=== PATIENT | female | born 1945 | race Caucasian/White ===

== ENCOUNTER 2017-06-28 14:56 | Observation (INO) | payer MEDICARE, OTHER ==
[~2017-06-28] VITALS: Ht 167.6 cm; Wt 84.1 kg
[2017-06-28 15:26] LABS: BASOPHILS # (AUTO) 0.1 X10'3 (0-0.2); BASOPHILS % (AUTO) 0.6 % (0-1); EOSINOPHILS # (AUTO) 0.2 X10'3 (0-0.9); EOSINOPHILS % (AUTO) 1.8 % (0-6); HEMATOCRIT 41.4 % (35.0-45.0); HEMOGLOBIN 14.1 g/dl (12.0-16.0); LYMPHOCYTES # (AUTO) 1.5 X10'3 (1.1-4.8); LYMPHOCYTES % (AUTO) 15.5 % (21-51); MEAN CORPUSCULAR HEMOGLOBIN 30.6 PG (27.0-31.0); MEAN PLATELET VOLUME 9.4 FL (7.4-10.4); MONOCYTES # (AUTO) 0.7 X10'3 (0-0.9); NEUTROPHILS # (AUTO) 7.5 X10'3 (1.8-7.7); NEUTROPHILS % (AUTO) 75.1 % (42-75); PLATELET COUNT 215 X10'3 (140-440); RED CELL DISTRIBUTION WIDTH 13.6 % (11.5-14.5)
[2017-06-28 15:37] LABS: PARTIAL THROMBOPLASTIN TIME 25 SECONDS (22-32)
[2017-06-28] MEDS ORDERED: nitroGLYCERIN 0.2mg/hour patch TD ONE (15:50)
[2017-06-28 15:53] LABS: ALBUMIN 3.9 G/DL (3.4-5.0); ANION GAP 12 (8-16); BILIRUBIN,TOTAL 0.6 MG/DL (0.1-1.0); BLOOD UREA NITROGEN 23 MG/DL (7-18); BUN/CREATININE RATIO 20.7 (6.6-38.0); CALCIUM 9.2 MG/DL (8.5-10.1); CHLORIDE 102 MMOL/L (99-107); CREATININE 1.11 MG/DL (0.40-0.90); GLUCOSE 97 MG/DL (70-104); MAGNESIUM 2.2 MG/DL (1.5-2.4); POTASSIUM 4.3 MMOL/L (3.5-5.1); SODIUM 142 MMOL/L (135-145); TOTAL CARBON DIOXIDE 28.1 MMOL/L (24-32); TOTAL PROTEIN 7.8 G/DL (6.4-8.2); eGFR 48 ML/MIN
[2017-06-28 15:54] LABS: ALANINE AMINOTRANSFERASE 33 U/L (12-78); ALKALINE PHOSPHATASE 74 IU/L (46-116); ASPARTATE AMINO TRANSFERASE 22 U/L (10-37)
[2017-06-28] MEDS ORDERED: CYAN100097 PO (16:31)
[2017-06-28] MEDS ORDERED: MAGN400C PO (16:31)
[2017-06-28] MEDS ORDERED: VITA0.4T2 PO (16:31)
[2017-06-28] MEDS ORDERED: CHOL10002 PO (16:31)
[2017-06-28] MEDS ORDERED: HYDR25TA4 PO (16:31)
[2017-06-28] MEDS ORDERED: HYDR-4069 PO (16:31)
[2017-06-28] MEDS ORDERED: potassium Cl 20 mEq SR tablet PO PRN ×2 (16:50)
[2017-06-28] MEDS ORDERED: mag hydrox/Alum hydrox/simeth 30ml oral suspension PO PRN (16:50)
[2017-06-28] MEDS ORDERED: ondansetron/PF 4mg/2ml inj IV PRN (16:50)
[2017-06-28] MEDS ORDERED: magnesium 4gm in 100ml NS 100 ML IV PRN (16:50)
[2017-06-28] MEDS ORDERED: magnesium 2GM in 50ml NS 50 ML IV PRN (16:50)
[2017-06-28] MEDS ORDERED: potassium Cl 40MEQ/NS 500ml 500 ML IV PRN ×2 (16:50)
[2017-06-28] MEDS ORDERED: magnesium hydroxide 30ml (MOM) UD suspension PO PRN (16:50)
[2017-06-28] MEDS ORDERED: acetaminophen 325mg tablet PO PRN (16:50)
[2017-06-28] MEDS ORDERED: magnesium Cl slow-release 64mg tablet PO PRN (16:50)
[2017-06-28] MEDS: hydrALAZINE 25 MG tablet PO SCH (17:50)
[2017-06-28] MEDS: normal saline 1000ml 1,000 ML IV SCH (17:50)
[2017-06-28] MEDS ORDERED: hydrALAZINE 25 MG tablet PO SCH (20:00)
[2017-06-29 00:40] VITALS: BP 162/56
[2017-06-29] MEDS: hydrALAZINE 25 MG tablet PO SCH ×2 (00:43→07:33)
[2017-06-29] MEDS: normal saline 1000ml 1,000 ML IV SCH (00:43)
[2017-06-29] MEDS: heparin, porcine 5000 units/ml vial SQ SCH ×2 (00:44→07:36)
[2017-06-29 00:50] VITALS: BP_SYST 142; BP_SYST 162; BP_SYST 174; BP_DIAS 56; BP_DIAS 76; BP_DIAS 77
[2017-06-29 02:00] VITALS: BP 118/45
[2017-06-29 03:49] LABS: BASOPHILS % (AUTO) 0.5 % (0-1); EOSINOPHILS # (AUTO) 0.2 X10'3 (0-0.9); EOSINOPHILS % (AUTO) 2.6 % (0-6); HEMATOCRIT 35.3 % (35.0-45.0); HEMOGLOBIN 12.1 g/dl (12.0-16.0); LYMPHOCYTES # (AUTO) 2.1 X10'3 (1.1-4.8); LYMPHOCYTES % (AUTO) 31.1 % (21-51); MEAN CORPUSCULAR HEMOGLOBIN 30.6 PG (27.0-31.0); MEAN CORPUSCULAR HGB CONC 34.1 % (33.0-36.5); MEAN CORPUSCULAR VOLUME 89.5 FL (78-98); MEAN PLATELET VOLUME 9.3 FL (7.4-10.4); MONOCYTES # (AUTO) 0.7 X10'3 (0-0.9); MONOCYTES % (AUTO) 10.4 % (2-12); NEUTROPHILS # (AUTO) 3.8 X10'3 (1.8-7.7); NEUTROPHILS % (AUTO) 55.4 % (42-75); PLATELET COUNT 195 X10'3 (140-440); RED BLOOD COUNT 3.95 X10'6 (4.20-5.60); RED CELL DISTRIBUTION WIDTH 13.3 % (11.5-14.5); WHITE BLOOD COUNT 6.8 X10'3 (4.5-11.0)
[2017-06-29 04:08] LABS: ALBUMIN 3.1 G/DL (3.4-5.0); ANION GAP 10 (8-16); BLOOD UREA NITROGEN 22 MG/DL (7-18); BUN/CREATININE RATIO 19.3 (6.6-38.0); CALCIUM 8.7 MG/DL (8.5-10.1); CHLORIDE 105 MMOL/L (99-107); CREATININE 1.14 MG/DL (0.40-0.90); GLUCOSE 103 MG/DL (70-104); MAGNESIUM 2.1 MG/DL (1.5-2.4); POTASSIUM 3.6 MMOL/L (3.5-5.1); SODIUM 141 MMOL/L (135-145); TOTAL CARBON DIOXIDE 25.8 MMOL/L (24-32); eGFR 47 ML/MIN
[2017-06-29 06:00] VITALS: BP 143/56
[2017-06-29] MEDS ORDERED: vitamin B comp w/Vit. C tab 1 TAB TABLET PO SCH (08:00)
[2017-06-29] MEDS ORDERED: vitamin D (cholecalciferol) 1,000 unit tablet PO SCH (08:00)
[2017-06-29] MEDS ORDERED: magnesium oxide 400mg tablet PO SCH (08:00)
[2017-06-29] MEDS ORDERED: cyanocobalamin 500mcg tablet PO SCH (08:00)
[2017-06-29] MEDS ORDERED: K and/or MAG REPLACEMENT MC SCH (08:00)
[2017-06-29] MEDS ORDERED: potassium Cl 20 mEq SR tablet PO STA (08:05)
[2017-06-29 11:00] VITALS: BP 139/61
== END 2017-06-29 13:15 | disposition left against medical advice (07) ==
LOC: ER 14:56 → ED HOLD 16:46 → EDBEDREQSVC 22:53 → ORTHO 4S 06-29 00:45
PROVIDERS: ADMIT Internal Medicine; ATTEND Internal Medicine
DX: R42 Dizziness and giddiness (principal); R05 Cough; R11.0 Nausea; E78.5 Hyperlipidemia, unspecified; G47.33 Obstructive sleep apnea (adult) (pediatric); I10 Essential (primary) hypertension; I16.0 Hypertensive urgency; J06.9 Acute upper respiratory infection, unspecified; I25.110 Atherosclerotic heart disease of native coronary artery with unstable angina pectoris; I25.2 Old myocardial infarction; Z95.1 Presence of aortocoronary bypass graft; Z95.5 Presence of coronary angioplasty implant and graft; Z96.652 Presence of left artificial knee joint; Z82.49 Family history of ischemic heart disease and other diseases of the circulatory system
CPT/HCPCS: 36415; 71045; 80048; 80053; 83605; 83735; 83880; 84439; 84443; 84484; 85025; 85610; 85730; 87040; 87070; 87502; 87503; 93005; 93306; 94667; 94668; 96360; 96361; 96372; 99285; G0378; J1644; J7030; J3420

== ENCOUNTER 2018-06-04 05:22 | Inpatient (IN) | payer MEDICARE, OTHER ==
[~2018-06-04] VITALS: Ht 167.6 cm; Wt 84.1 kg
[~2018-06-04 05:22] MED LIST: ASPI-1265 PO; CHOL10002 PO; CYAN100097 PO; HYDR-4069 PO; HYDR25TA4 PO; MAGN400C PO; TICA90TA PO; VITA0.4T2 PO; VITA100D6 PO; [UNRECOGNIZED DRUG - OTHER] PO
[2018-06-04 05:52] LABS: BASOPHILS % (AUTO) 0.4 % (0-1); EOSINOPHILS # (AUTO) 0.1 X10'3 (0-0.9); EOSINOPHILS % (AUTO) 1.3 % (0-6); HEMATOCRIT 41.6 % (35.0-45.0); HEMOGLOBIN 13.9 g/dl (12.0-16.0); LYMPHOCYTES # (AUTO) 1.7 X10'3 (1.1-4.8); LYMPHOCYTES % (AUTO) 21.5 % (21-51); MEAN CORPUSCULAR HEMOGLOBIN 29.7 PG (27.0-31.0); MEAN CORPUSCULAR HGB CONC 33.4 g/dL (33.0-36.5); MEAN CORPUSCULAR VOLUME 88.8 FL (78-98); MEAN PLATELET VOLUME 9.7 FL (7.4-10.4); MONOCYTES # (AUTO) 0.7 X10'3 (0-0.9); MONOCYTES % (AUTO) 9.5 % (2-12); NEUTROPHILS # (AUTO) 5.3 X10'3 (1.8-7.7); NEUTROPHILS % (AUTO) 67.3 % (42-75); PLATELET COUNT 205 X10'3 (140-440); RED BLOOD COUNT 4.69 X10'6 (4.20-5.60); RED CELL DISTRIBUTION WIDTH 13.7 % (11.5-14.5); WHITE BLOOD COUNT 7.9 X10'3 (4.5-11.0)
--- NOTE | 2018-06-04 06:06 | NUR ---
SPOUSE IN ROOM, THEY ARE QUIET
[2018-06-04 06:11] LABS: ALANINE AMINOTRANSFERASE 26 U/L (12-78); ALBUMIN 3.8 G/DL (3.4-5.0); ALKALINE PHOSPHATASE 76 IU/L (46-116); ANION GAP 12 (8-16); ASPARTATE AMINO TRANSFERASE 17 U/L (10-37); BILIRUBIN,TOTAL 0.6 MG/DL (0.1-1.0); BLOOD UREA NITROGEN 20 MG/DL (7-18); BUN/CREATININE RATIO 16.9 (6.6-38.0); CALCIUM 8.9 MG/DL (8.5-10.1); CHLORIDE 101 MMOL/L (99-107); CREATININE 1.18 MG/DL (0.40-0.90); GLUCOSE 111 MG/DL (70-104); POTASSIUM 3.6 MMOL/L (3.5-5.1); SODIUM 139 MMOL/L (135-145); TOTAL PROTEIN 7.5 G/DL (6.4-8.2); eGFR 45 ML/MIN
[2018-06-04 06:12] LABS: PARTIAL THROMBOPLASTIN TIME 26 SECONDS (22-32)
[2018-06-04] MEDS ORDERED: normal saline 1000ML IV soln IVB ONE (06:30)
[2018-06-04] MEDS ORDERED: HYDROchlorothiazide 25mg tablet PO ONE (06:30)
[2018-06-04] MEDS ORDERED: hydrALAZINE 25 MG tablet PO SCH (06:30)
[2018-06-04 07:06] LABS: CLARITY,URINE CLEAR (Clear); COLOR,URINE STRAW (Yellow); GLUCOSE, URINE NEGATIVE (Neg); KETONES,URINE NEGATIVE (Neg); LEUKOCYTE ESTERASE ,URINE SMALL (Neg); NITRITES, URINE NEGATIVE (Neg); OCCULT BLOOD,URINE NEGATIVE (Neg); PH,URINE 6.5 (4.8-8.0); PROTEIN,URINE NEGATIVE (Neg); UROBILINOGEN,URINE 0.2 E.U/dL (0.2-1.0)
[2018-06-04 07:10] LABS: UA COLLECTION TYPE CLN CATCH MIDSTREAM
[2018-06-04 07:13] LABS: BACTERIA,URINE FEW /HPF (Neg); MUCUS STRANDS NONE SEEN /LPF (Neg); RBC,URINE NONE SEEN /HPF (0-2); SQUAMOUS EPITHELIAL CELL,UR FEW /LPF (FEW); WBC,URINE 0-4 /HPF (0-4)
[2018-06-04] MEDS ORDERED: furosemide 10 MG/1 ML 10ml inj IV ONE (07:20)
[2018-06-04] MEDS ORDERED: nitroGLYCERIN 0.4mg/hour patch TD ONE (07:35)
[2018-06-04] MEDS ORDERED: ondansetron/PF 4mg/2ml inj IV PRN (08:10)
[2018-06-04] MEDS ORDERED: magnesium hydroxide 30ml (MOM) UD suspension PO PRN (08:10)
[2018-06-04] MEDS ORDERED: mag hydrox/Alum hydrox/simeth 30ml oral suspension PO PRN (08:10)
[2018-06-04] MEDS: furosemide 10 MG/1 ML 10ml inj IV SCH ×2 (08:12→21:25)
--- NOTE | 2018-06-04 11:15 | NUR ---
RECEIVED REPORT FROM BUZZ ADEN IN ER. PATIENT WILL BE COMING TO THE SURGICAL FLOOR 346B.
--- NOTE | 2018-06-04 12:00 | NUR ---
PATIENT ARRIVED TO THE SURGICAL UNIT BED 346 B ALERT AND ORIENTED. PATIENT STABLE IN BED. I WILL CONTINUE TO MONITOR.
[2018-06-04 12:10] VITALS: BP 133/69
[2018-06-04] MEDS ORDERED: CLOP75TA15 PO (12:15)
--- NOTE | 2018-06-04 18:34 | NUR ---
Problems reprioritized. Patient report given, DAVID ADEN questions answered & plan of care reviewed with . PATIENT IN BED WATCHING TV, BED LOW LOCKED, CALL LIGHT IN REACH
[2018-06-04 19:50] VITALS: BP 168/68
[2018-06-04] MEDS: hydrALAZINE 25 MG tablet PO SCH (21:25)
[2018-06-05] VITALS: BP 130/53
--- NOTE | 2018-06-05 06:00 | NUR ---
Patient in room [facility]. I have received report from MARKIE Miller and had the opportunity to ask questions and assume patient care.
--- NOTE | 2018-06-05 06:31 | NUR ---
Problems reprioritized. Patient report given, questions answered & plan of care reviewed with ALONZO. Addendum: 06/05/18 at 0631 by Pasquale Kidd RN Amended: Links added.
--- NOTE | 2018-06-05 06:38 | NUR ---
Problems reprioritized. Patient report given, questions answered & plan of care reviewed with AB ROSADO. Addendum: 06/05/18 at 0639 by Pasquale Kidd RN Amended: Links added.
[2018-06-05 07:12] LABS: ALBUMIN 3.6 G/DL (3.4-5.0); ANION GAP 13 (8-16); BLOOD UREA NITROGEN 27 MG/DL (7-18); BUN/CREATININE RATIO 20.6 (6.6-38.0); CHLORIDE 98 MMOL/L (99-107); CREATININE 1.31 MG/DL (0.40-0.90); GLUCOSE 114 MG/DL (70-104); SODIUM 134 MMOL/L (135-145); TOTAL CARBON DIOXIDE 23.3 MMOL/L (24-32); eGFR 40 ML/MIN
[2018-06-05 07:13] LABS: POTASSIUM 3.5 MMOL/L (3.5-5.1)
[2018-06-05] MEDS ORDERED: clopidogrel 75mg tablet PO SCH (08:00)
[2018-06-05] MEDS ORDERED: vitamin D (cholecalciferol) 1,000 unit tablet PO SCH (08:00)
[2018-06-05] MEDS ORDERED: enoxaparin 40mg/0.4ml syringe SUBCUT SCH (08:00)
[2018-06-05] MEDS ORDERED: vitamin B comp w/Vit. C tab 1 TAB TABLET PO SCH (08:00)
[2018-06-05] MEDS ORDERED: cyanocobalamin 500mcg tablet PO SCH (08:00)
[2018-06-05] MEDS ORDERED: magnesium oxide 400mg tablet PO SCH (08:00)
[2018-06-05] MEDS ORDERED: vitamin E 400 unit capsule PO SCH (08:00)
[2018-06-05] MEDS ORDERED: FURO-150 PO (08:54)
[2018-06-05] MEDS ORDERED: ONDA4TAB6 PO (08:55)
[2018-06-05] MEDS: hydrALAZINE 25 MG tablet PO SCH (10:33)
[2018-06-05] MEDS: furosemide 10 MG/1 ML 10ml inj IV SCH (10:36)
[2018-06-05 11:06] VITALS: BP 127/67
--- NOTE | 2018-06-05 13:40 | NUR ---
DC inst provided to pt. IV DC'd, tip intact. All belongings sent w/pt. Pt ambulated w/auxiliary staff to front lobby.
== END 2018-06-05 13:45 | disposition home or self-care (01) | DRG 292 ==
LOC: ER 05:23 → ED HOLD 08:06 → SUR 3N 12:00
PROVIDERS: ADMIT Internal Medicine; ATTEND Internal Medicine
DX: I11.0 Hypertensive heart disease with heart failure (principal); I24.9 Acute ischemic heart disease, unspecified; I50.33 Acute on chronic diastolic (congestive) heart failure; G47.30 Sleep apnea, unspecified; I25.10 Atherosclerotic heart disease of native coronary artery without angina pectoris; G62.9 Polyneuropathy, unspecified; Z96.659 Presence of unspecified artificial knee joint; I25.2 Old myocardial infarction; Z95.1 Presence of aortocoronary bypass graft; Z88.5 Allergy status to narcotic agent; Z88.8 Allergy status to other drugs, medicaments and biological substances; Z79.899 Other long term (current) drug therapy; Z79.02 Long term (current) use of antithrombotics/antiplatelets
CPT/HCPCS: 36415; 71045; 80048; 80053; 81001; 82948; 83880; 84484; 85025; 85610; 85730; 87070; 87088; 93005; 93306; 96361; 96374; 99285; G0378; J1650; J1940; J2405; J3420

== ENCOUNTER 2020-03-26 06:57 | Day surgery (SDC) | payer MEDICARE, OTHER ==
[2020-03-26] VITALS (12 sets, daily range): BP systolic 112–145; BP diastolic 40–76
[~2020-03-26] VITALS: Ht 167.6 cm; Wt 82.1 kg
[~2020-03-26 06:57] MED LIST changes: +APIX5TAB3 PO; -ASPI-1265 PO; +ATOR20TA66 PO; +CLOP75TA15 PO; +COR3.125T PO; +FURO-150 PO; +LISI2.5T2 PO; +POTA20TA10 PO; -TICA90TA PO; -[UNRECOGNIZED DRUG - OTHER] PO
[2020-03-26] MEDS ORDERED: amiodarone 150mg/dext, iso-os 100 ML IV ONE (07:25)
[2020-03-26] MEDS ORDERED: fentaNYL/PF 50MCG/1 ML 2ML syringe IV ONE (07:25)
[2020-03-26] MEDS ORDERED: diphenhydrAMINE 25mg capsule PO ONE (07:25)
[2020-03-26] MEDS ORDERED: normal saline 1000ml 1,000 ML IV SCH (07:25)
[2020-03-26] MEDS ORDERED: LORazepam 0.5 MG tablet PO ONE (07:25)
[2020-03-26] MEDS ORDERED: MIDAZolam 1mg/ml 10ml vial IV ONE (07:25)
[2020-03-26] MEDS ORDERED: atropine 0.1mg/ml 10ml syringe IV ONE (07:25)
[2020-03-26] MEDS ORDERED: WARF3TAB56 PO (07:31)
[2020-03-26] MEDS ORDERED: AMIO200T61 PO (07:31)
[2020-03-26] MEDS ORDERED: DIGO125T PO (07:31)
[2020-03-26] MEDS ORDERED: ALLO100T PO (07:31)
[2020-03-26] MEDS ORDERED: METO-395 PO (07:31)
[2020-03-26] MEDS ORDERED: FURO40TA4 PO (07:31)
== END 2020-03-26 13:30 | disposition home or self-care (01) ==
LOC: SSTAY O 06:57
PROVIDERS: ATTEND Internal Medicine Cardiovascular Disease
DX: I48.19 Other persistent atrial fibrillation (principal); I25.10 Atherosclerotic heart disease of native coronary artery without angina pectoris; I11.0 Hypertensive heart disease with heart failure; I50.42 Chronic combined systolic (congestive) and diastolic (congestive) heart failure; E78.5 Hyperlipidemia, unspecified; Z95.5 Presence of coronary angioplasty implant and graft; Z79.01 Long term (current) use of anticoagulants; Z79.899 Other long term (current) drug therapy
CPT/HCPCS: 36415; 85610; 92960; 93005; 94760; 94799; J0461; J2250; J3010; J7030

== ENCOUNTER 2020-12-03 10:03 | Outpatient (CLI) | payer MEDICARE, OTHER ==
[~2020-12-03 10:03] MED LIST changes: +ALLO100T PO; +AMIO200T61 PO; -APIX5TAB3 PO; -ATOR20TA66 PO; -CLOP75TA15 PO; -COR3.125T PO; -CYAN100097 PO; +DIGO125T PO; -FURO-150 PO; +FURO40TA4 PO; -HYDR25TA4 PO; -LISI2.5T2 PO; +METO-395 PO; -POTA20TA10 PO; -VITA0.4T2 PO; +WARF3TAB56 PO
[2020-12-03 10:40] LABS: TOTAL HEMOGLOBIN 12.5 G/dl (12.0-16.0)
== END 2020-12-03 23:59 | disposition home or self-care (01) ==
LOC: RT 10:03
PROVIDERS: ATTEND Internal Medicine Cardiovascular Disease
DX: R06.02 Shortness of breath (principal); I51.7 Cardiomegaly; Z79.899 Other long term (current) drug therapy
CPT/HCPCS: 71046; 85018; 94010; 94727; 94729

== ENCOUNTER 2021-12-28 05:57 | Day surgery (SDC) | payer MEDICARE, OTHER ==
[2021-12-25 12:12] LABS: BASOPHILS % (AUTO) 0.8 % (0-1); EOSINOPHILS # (AUTO) 0.1 X10'3 (0-0.9); EOSINOPHILS % (AUTO) 1.3 % (0-6); HEMATOCRIT 33.1 % (35.0-45.0); HEMOGLOBIN 10.5 g/dl (12.0-16.0); LYMPHOCYTES % (AUTO) 18.2 % (21-51); MEAN CORPUSCULAR HEMOGLOBIN 26.5 PG (27.0-31.0); MEAN CORPUSCULAR HGB CONC 31.8 g/dL (33.0-36.5); MEAN CORPUSCULAR VOLUME 83.1 FL (78-98); MEAN PLATELET VOLUME 10.3 FL (7.4-10.4); MONOCYTES # (AUTO) 0.8 X10'3 (0-0.9); MONOCYTES % (AUTO) 14.9 % (2-12); NEUTROPHILS # (AUTO) 3.4 X10'3 (1.8-7.7); NEUTROPHILS % (AUTO) 64.8 % (42-75); PLATELET COUNT 159 X10'3 (140-440); RED BLOOD COUNT 3.98 X10'6 (4.20-5.60); RED CELL DISTRIBUTION WIDTH 17.8 % (11.5-14.5); WHITE BLOOD COUNT 5.2 X10'3 (4.5-11.0)
[2021-12-25 12:31] LABS: ALBUMIN 3.6 G/DL (3.4-5.0); ANION GAP 7 (8-16); BLOOD UREA NITROGEN 25 MG/DL (7-18); BUN/CREATININE RATIO 16.2 (6.6-38.0); CALCIUM 8.8 MG/DL (8.5-10.1); CHLORIDE 105 MMOL/L (99-107); CREATININE 1.54 MG/DL (0.40-0.90); GLUCOSE 92 MG/DL (70-104); POTASSIUM 4.5 MMOL/L (3.5-5.1); SODIUM 138 MMOL/L (135-145); TOTAL CARBON DIOXIDE 26.4 MMOL/L (24-32); eGFR 33 ML/MIN
[2021-12-25 12:51] LABS: APTT 37 SECONDS (22-32)
[~2021-12-28] VITALS: Ht 167.6 cm; Wt 90.9 kg
[2021-12-28] VITALS (12 sets, daily range): BP systolic 130–165; BP diastolic 45–86
[2021-12-28] MEDS ORDERED: LIDOcaine/PRILOcaine 5gm cream TP ONE (06:20)
[2021-12-28] MEDS ORDERED: normal saline 1,000 ML IV SCH ×2 (06:20→07:40)
[2021-12-28] MEDS ORDERED: diphenhydrAMINE 25mg capsule PO PRN (06:20)
[2021-12-28] MEDS ORDERED: acetylcysteine 200 MG/ml 4ml vial PO SCH (06:20)
[2021-12-28] MEDS ORDERED: LORazepam 0.5 MG tablet PO PRN (06:20)
[2021-12-28] MEDS ORDERED: METO-539 PO ×2 (06:38→06:40)
[2021-12-28] MEDS ORDERED: WARF-55 PO (06:40)
[2021-12-28 07:27] LABS: APTT 31 SECONDS (22-32)
[2021-12-28] MEDS ORDERED: nitroGLYCERIN-Tridil 50MG/D5W 250 ML IV ONE (07:36)
[2021-12-28] MEDS ORDERED: verapamil 2.5 mg/ml inj IV ONE (07:36)
[2021-12-28] MEDS ORDERED: fentaNYL/PF 50MCG/1 ML 2ML syringe ONE (07:36)
[2021-12-28] MEDS ORDERED: LIDOcaine 1%/PF 5ML 10 MG/ML VIAL ONE (07:36)
[2021-12-28] MEDS ORDERED: midazolam 1 mg/ML 2ml injection ONE (07:36)
[2021-12-28] MEDS ORDERED: heparin 1,000unit/ml 10ml vial 0 ML ONE (07:36)
[2021-12-28] MEDS ORDERED: iohexol 350MG/ML 100ml bottle IV ONE ×3 (07:36→09:13)
[2021-12-28] MEDS ORDERED: sodium bicarbonate (8.4%) inj. 150 ML in dextrose 5%-water 1,000 ML IV ONE (07:40)
[2021-12-28] MEDS ORDERED: heparin 1,000unit/ml 10ml vial 10 ML ONE (09:05)
[2021-12-28] MEDS ORDERED: HEPARIN SOD,PORK IN 0.45% NACL 250 ML IV ONE (09:07)
[2021-12-28] MEDS ORDERED: clopidogrel 300mg tablet ONE (09:33)
--- NOTE | 2021-12-28 11:05 | NUR ---
Hep gtt dc'd as ordered.
--- NOTE | 2021-12-28 13:34 | NUR ---
Pt complaint of pain due to not being able to void. Pt has tried to use the bedpan. Pt agreed to straight cath.
--- NOTE | 2021-12-28 13:56 | NUR ---
700ml yellow and clear. Pt states, "that feels so much better". VS stable as charted.
--- NOTE | 2021-12-28 14:08 | NUR ---
fluids infusing as ordered. Pt had bicarb gtt infusing upon arrival from ship laborer.
[2021-12-28] MEDS ORDERED: acetylcysteine 200 MG/ml 4ml vial PO PRN (16:22)
[2021-12-28] MEDS ORDERED: sod bicarbonate 150mEq in D5W 1,150 ML IV SCH (16:25)
[2021-12-28] MEDS ORDERED: sodium bicarbonate (8.4%) inj. 150 MEQ in dextrose 5%-water 1,000 ML IV SCH (16:29)
== END 2021-12-28 18:15 | disposition home or self-care (01) ==
LOC: SSTAY O 05:57
PROVIDERS: ATTEND Internal Medicine Cardiovascular Disease
DX: I25.10 Atherosclerotic heart disease of native coronary artery without angina pectoris (principal); I25.82 Chronic total occlusion of coronary artery; I48.0 Paroxysmal atrial fibrillation; I50.22 Chronic systolic (congestive) heart failure; G47.30 Sleep apnea, unspecified; I11.0 Hypertensive heart disease with heart failure; E78.5 Hyperlipidemia, unspecified; I25.810 Atherosclerosis of coronary artery bypass graft(s) without angina pectoris; Z79.01 Long term (current) use of anticoagulants; Z79.899 Other long term (current) drug therapy; Z98.890 Other specified postprocedural states; I48.91 Unspecified atrial fibrillation; I50.9 Heart failure, unspecified; G47.33 Obstructive sleep apnea (adult) (pediatric); Z95.5 Presence of coronary angioplasty implant and graft
CPT/HCPCS: 36415; 76937; 80048; 85025; 85347; 85610; 85730; 93005; 93459; 99152; 99153; C1725; C1751; C1758; C1760; C1769; C1874; C1894; C9604; J1644; J2250; J3010; J3490; J7030; Q0163; Q9967; A4620; A5120; A6258

== ENCOUNTER 2022-01-20 05:58 | Day surgery (SDC) | payer MEDICARE, OTHER ==
[2022-01-19 12:15] LABS: BASOPHILS # (AUTO) 0.1 X10'3 (0-0.2); BASOPHILS % (AUTO) 1.2 % (0-1); EOSINOPHILS # (AUTO) 0.2 X10'3 (0-0.9); EOSINOPHILS % (AUTO) 2.6 % (0-6); HEMATOCRIT 36.3 % (35.0-45.0); HEMOGLOBIN 11.7 g/dl (12.0-16.0); LYMPHOCYTES # (AUTO) 1.5 X10'3 (1.1-4.8); LYMPHOCYTES % (AUTO) 25.1 % (21-51); MEAN CORPUSCULAR HEMOGLOBIN 26.5 PG (27.0-31.0); MEAN CORPUSCULAR HGB CONC 32.1 g/dL (33.0-36.5); MEAN CORPUSCULAR VOLUME 82.5 FL (78-98); MEAN PLATELET VOLUME 9.7 FL (7.4-10.4); MONOCYTES # (AUTO) 0.8 X10'3 (0-0.9); NEUTROPHILS # (AUTO) 3.4 X10'3 (1.8-7.7); NEUTROPHILS % (AUTO) 58.1 % (42-75); PLATELET COUNT 184 X10'3 (140-440); RED CELL DISTRIBUTION WIDTH 17.3 % (11.5-14.5); WHITE BLOOD COUNT 5.9 X10'3 (4.5-11.0)
[2022-01-19 13:14] LABS: ALBUMIN 3.9 G/DL (3.4-5.0); ANION GAP 10 (8-16); BLOOD UREA NITROGEN 25 MG/DL (7-18); BUN/CREATININE RATIO 18.2 (6.6-38.0); CALCIUM 9.3 MG/DL (8.5-10.1); CHLORIDE 103 MMOL/L (99-107); CREATININE 1.37 MG/DL (0.40-0.90); GLUCOSE 110 MG/DL (70-104); POTASSIUM 4.1 MMOL/L (3.5-5.1); SODIUM 141 MMOL/L (135-145); eGFR 37 ML/MIN
[2022-01-19 13:15] LABS: APTT 27 SECONDS (22-32)
[2022-01-20] VITALS (11 sets, daily range): BP systolic 126–181; BP diastolic 45–97
[~2022-01-20] VITALS: Ht 167.6 cm; Wt 85.8 kg
[~2022-01-20 05:58] MED LIST changes: -ALLO100T PO; -DIGO125T PO; -METO-395 PO; +METO-539 PO; +WARF-55 PO; -WARF3TAB56 PO
[2022-01-20] MEDS ORDERED: normal saline 1,000 ML IV SCH (06:30)
[2022-01-20] MEDS ORDERED: LIDOcaine/PRILOcaine 5gm cream TP ONE (06:30)
[2022-01-20] MEDS ORDERED: LORazepam 0.5 MG tablet PO PRN (06:30)
[2022-01-20] MEDS ORDERED: diphenhydrAMINE 25mg capsule PO PRN (06:30)
[2022-01-20] MEDS ORDERED: acetylcysteine 200 MG/ml 4ml vial PO PRN (06:30)
[2022-01-20] MEDS ORDERED: HYDR-4069 PO (06:44)
[2022-01-20] MEDS ORDERED: SPIR25TA5 PO (06:49)
[2022-01-20] MEDS ORDERED: MAGN100T5 PEG (06:49)
[2022-01-20] MEDS ORDERED: CLOP75TA15 PO (06:55)
[2022-01-20] MEDS ORDERED: HEPARIN SOD,PORK IN 0.45% NACL 250 ML IV ONE (07:32)
[2022-01-20] MEDS ORDERED: midazolam 1 mg/ML 2ml injection ONE (07:32)
[2022-01-20] MEDS ORDERED: LIDOcaine 1% 30ml preserv. free vial ONE (07:33)
[2022-01-20] MEDS ORDERED: heparin 1,000unit/ml 10ml vial 10 ML ONE (07:33)
[2022-01-20] MEDS ORDERED: fentaNYL/PF 50MCG/1 ML 2ML syringe ONE (07:33)
[2022-01-20] MEDS ORDERED: iohexol 350MG/ML 100ml bottle IV ONE ×2 (07:33→09:18)
[2022-01-20] MEDS ORDERED: nitroGLYCERIN-Tridil 50MG/D5W 250 ML IV ONE (07:38)
[2022-01-20] MEDS ORDERED: verapamil 2.5 mg/ml inj IV ONE (08:00)
[2022-01-20] MEDS ORDERED: sodium bicarbonate (8.4%) inj. 150 ML in dextrose 5%-water 1,000 ML IV ONE ×2 (09:25→09:30)
[2022-01-20] MEDS ORDERED: clopidogrel 300mg tablet ONE (09:45)
--- NOTE | 2022-01-20 10:10 | NUR ---
Pt returned from clinical laboratory scientist with Heparin gtt and NS running as ordered. Pt denies cp, denies sob.
[2022-01-20] MEDS ORDERED: normal saline 1000ml 1,000 ML IV SCH (10:20)
--- NOTE | 2022-01-20 11:01 | NUR ---
Pt heparin gtt was stopped.
== END 2022-01-20 15:05 | disposition home or self-care (01) ==
LOC: SSTAY O 05:58
PROVIDERS: ATTEND Internal Medicine Cardiovascular Disease
DX: I25.10 Atherosclerotic heart disease of native coronary artery without angina pectoris (principal); I50.32 Chronic diastolic (congestive) heart failure; I48.91 Unspecified atrial fibrillation; I50.9 Heart failure, unspecified; E78.5 Hyperlipidemia, unspecified; I11.0 Hypertensive heart disease with heart failure; G47.33 Obstructive sleep apnea (adult) (pediatric); I48.0 Paroxysmal atrial fibrillation; I50.22 Chronic systolic (congestive) heart failure; G47.30 Sleep apnea, unspecified; Z95.5 Presence of coronary angioplasty implant and graft; Z79.899 Other long term (current) drug therapy; Z98.890 Other specified postprocedural states; Z82.49 Family history of ischemic heart disease and other diseases of the circulatory system
CPT/HCPCS: 36415; 80048; 85025; 85347; 85610; 85730; 92920; 93005; 99152; 99153; C1725; C1751; C1769; C1894; J1644; J2250; J3010; J3490; J7030; J7070; Q0163; Q9967; A4620; A6258; A6402; C1874

== ENCOUNTER 2022-07-13 10:27 | Outpatient (CLI) | payer MEDICARE, OTHER ==
[~2022-07-13 10:27] MED LIST changes: +CLOP75TA15 PO; +MAGN100T5 PEG; -MAGN400C PO; +SPIR25TA5 PO
== END 2022-07-13 23:59 | disposition home or self-care (01) ==
LOC: CARD DIAG 10:27
PROVIDERS: ATTEND Internal Medicine Cardiovascular Disease
DX: I08.1 Rheumatic disorders of both mitral and tricuspid valves (principal); I11.0 Hypertensive heart disease with heart failure; I50.22 Chronic systolic (congestive) heart failure; Z95.1 Presence of aortocoronary bypass graft; Z95.5 Presence of coronary angioplasty implant and graft
CPT/HCPCS: 93306

== ENCOUNTER 2023-01-11 15:46 | Emergency (ER) | payer MEDICARE, OTHER ==
[~2023-01-11] VITALS: Ht 167.6 cm; Wt 80.0 kg
[~2023-01-11 15:46] MED LIST changes: +AMI200T PO; -AMIO200T61 PO
[2023-01-11 15:50] VITALS: TEMP 97.6
[2023-01-11 16:06] LABS: EOSINOPHILS # (AUTO) 0.1 X10'3 (0-0.9); HEMOGLOBIN 13.1 g/dl (12.0-16.0); MEAN CORPUSCULAR HGB CONC 32.8 g/dL (33.0-36.5); MONOCYTES # (AUTO) 0.7 X10'3 (0-0.9); WHITE BLOOD COUNT 4.6 X10'3 (4.5-11.0)
[2023-01-11 16:09] LABS: BASOPHILS % (AUTO) 1.1 % (0-1); EOSINOPHILS % (AUTO) 1.5 % (0-6); HEMATOCRIT 40.1 % (35.0-45.0); LYMPHOCYTES # (AUTO) 0.9 X10'3 (1.1-4.8); LYMPHOCYTES % (AUTO) 19.8 % (21-51); MEAN CORPUSCULAR HEMOGLOBIN 30.1 PG (27.0-31.0); MEAN CORPUSCULAR VOLUME 91.9 FL (78-98); MEAN PLATELET VOLUME 9.3 FL (7.4-10.4); MONOCYTES % (AUTO) 15.8 % (2-12); NEUTROPHILS # (AUTO) 2.9 X10'3 (1.8-7.7); NEUTROPHILS % (AUTO) 61.8 % (42-75); PLATELET COUNT 116 X10'3 (140-440); RED BLOOD COUNT 4.36 X10'6 (4.20-5.60); RED CELL DISTRIBUTION WIDTH 19.6 % (11.5-14.5)
[2023-01-11 16:18] LABS: ALANINE AMINOTRANSFERASE 19 U/L (12-78); ALBUMIN 3.8 G/DL (3.4-5.0); ALBUMIN/GLOBULIN RATIO 1.1 (1.1-1.5); ALKALINE PHOSPHATASE 164 IU/L (46-116); ANION GAP 8 (8-16); ASPARTATE AMINO TRANSFERASE 20 U/L (10-37); BILIRUBIN,TOTAL 1.9 MG/DL (0.1-1.0); BLOOD UREA NITROGEN 22 MG/DL (7-18); BUN/CREATININE RATIO 15.6 (10.0-20.0); CALCIUM 9.6 MG/DL (8.5-10.1); CHLORIDE 106 MMOL/L (99-107); CREATININE 1.41 MG/DL (0.40-0.90); GLUCOSE 103 MG/DL (70-104); POTASSIUM 4.1 MMOL/L (3.5-5.1); SODIUM 141 MMOL/L (135-145); TOTAL CARBON DIOXIDE 27.1 MMOL/L (24-32); TOTAL PROTEIN 7.2 G/DL (6.4-8.2); eCRCL 31 ML/MIN; eGFR 36 ML/MIN
[2023-01-11 16:24] LABS: PRO BRAIN NATRIURETIC PEPTIDE 10060 PG/ML (0-450)
[2023-01-11 17:42] LABS: INR 1.2 INR; PROTHROMBIN TIME 12.7 SECONDS (9.0-12.0)
[2023-01-11 18:22] LABS: BILIRUBIN,URINE NEGATIVE (Neg); CLARITY,URINE CLEAR (Clear); COLOR,URINE YELLOW (Yellow); GLUCOSE, URINE NEGATIVE (Neg); KETONES,URINE NEGATIVE (Neg); LEUKOCYTE ESTERASE ,URINE NEGATIVE (Neg); NITRITES, URINE NEGATIVE (Neg); OCCULT BLOOD,URINE NEGATIVE (Neg); PH,URINE 5.5 (4.8-8.0); PROTEIN,URINE NEGATIVE (Neg); UA COLLECTION TYPE CLN CATCH MIDSTREAM; UROBILINOGEN,URINE 0.2 E.U/dL (0.2-1.0)
[2023-01-11] MEDS ORDERED: WARF-55 PO (18:38)
[2023-01-11 18:48] VITALS: BP 141/70; PULSE 71; RESP 16; O2SAT 98
[2023-01-11 18:57] LABS: TOTAL CELLS COUNTED 100
[2023-01-11 18:58] LABS: ANISOCYTOSIS 2+; PLATELET ESTIMATE DECREASED
[2023-01-11 18:59] LABS: LARGE PLATELETS FEW
== END 2023-01-11 18:50 | disposition home or self-care (01) ==
LOC: ER 15:47
DX: I48.91 Unspecified atrial fibrillation (principal); I10 Essential (primary) hypertension; Z88.5 Allergy status to narcotic agent; Z88.6 Allergy status to analgesic agent; Z79.899 Other long term (current) drug therapy
CPT/HCPCS: 36415; 71045; 80053; 81003; 83880; 84145; 84484; 85007; 85025; 85610; 93005; 99285

== ENCOUNTER 2023-02-08 06:51 | Day surgery (SDC) | payer MEDICARE, OTHER ==
[2023-02-07 14:16] LABS: BASOPHILS % (AUTO) 0.8 % (0-1); HEMATOCRIT 41.4 % (35.0-45.0); HEMOGLOBIN 13.3 g/dl (12.0-16.0); LYMPHOCYTES # (AUTO) 0.7 X10'3 (1.1-4.8); LYMPHOCYTES % (AUTO) 15.4 % (21-51); MEAN CORPUSCULAR HEMOGLOBIN 30.4 PG (27.0-31.0); MEAN CORPUSCULAR HGB CONC 32.2 g/dL (33.0-36.5); MEAN CORPUSCULAR VOLUME 94.5 FL (78-98); MEAN PLATELET VOLUME 9.2 FL (7.4-10.4); MONOCYTES # (AUTO) 0.5 X10'3 (0-0.9); MONOCYTES % (AUTO) 10.5 % (2-12); NEUTROPHILS # (AUTO) 3.3 X10'3 (1.8-7.7); NEUTROPHILS % (AUTO) 72.3 % (42-75); PLATELET COUNT 148 X10'3 (140-440); RED BLOOD COUNT 4.38 X10'6 (4.20-5.60); RED CELL DISTRIBUTION WIDTH 14.9 % (11.5-14.5); WHITE BLOOD COUNT 4.6 X10'3 (4.5-11.0)
[2023-02-07 14:26] LABS: INR 2.3 INR; PROTHROMBIN TIME 23.9 SECONDS (9.0-12.0)
[2023-02-07 14:31] LABS: ALBUMIN 4.1 G/DL (3.4-5.0); ANION GAP 9 (8-16); BLOOD UREA NITROGEN 20 MG/DL (7-18); BUN/CREATININE RATIO 13.5 (10.0-20.0); CHLORIDE 102 MMOL/L (99-107); CREATININE 1.48 MG/DL (0.40-0.90); GLUCOSE 132 MG/DL (70-104); POTASSIUM 3.4 MMOL/L (3.5-5.1); SODIUM 141 MMOL/L (135-145); TOTAL CARBON DIOXIDE 29.9 MMOL/L (24-32); eGFR 34 ML/MIN
[~2023-02-08] VITALS: Ht 167.6 cm; Wt 79.4 kg
[2023-02-08] VITALS (8 sets, daily range): BP systolic 116–145; BP diastolic 52–72; PULSE 46–74; RESP 16–18; TEMP 97.5; O2SAT 96–99
[2023-02-08] MEDS ORDERED: POTA-192 PO (07:17)
[2023-02-08] MEDS ORDERED: NITR0.4T48 SL (07:18)
[2023-02-08] MEDS ORDERED: normal saline 1000ml 1,000 ML IV SCH (07:20)
[2023-02-08] MEDS ORDERED: LORazepam 0.5 MG tablet PO ONE (07:20)
[2023-02-08] MEDS ORDERED: atropine 0.1mg/ml 10ml syringe IV ONE (07:20)
[2023-02-08] MEDS ORDERED: MIDAZolam 1mg/ml 10ml vial IV ONE (07:20)
[2023-02-08] MEDS ORDERED: fentaNYL/PF 50MCG/1 ML 2ML syringe IV ONE (07:20)
[2023-02-08] MEDS ORDERED: diphenhydrAMINE 25mg capsule PO ONE (07:20)
[2023-02-08] MEDS ORDERED: amiodarone 150mg/dext, iso-os 100 ML IV ONE (07:20)
[2023-02-08] MEDS ORDERED: SPIR25TA5 PO (07:22)
[2023-02-08] MEDS ORDERED: WARF4TAB69 PO (07:23)
== END 2023-02-08 10:30 | disposition home or self-care (01) ==
LOC: SSTAY O 06:51
PROVIDERS: ATTEND Internal Medicine Cardiovascular Disease
DX: I48.0 Paroxysmal atrial fibrillation (principal); I13.0 Hypertensive heart and chronic kidney disease with heart failure and stage 1 through stage 4 chronic kidney disease, or unspecified chronic kidney disease; I50.22 Chronic systolic (congestive) heart failure; N18.9 Chronic kidney disease, unspecified; I25.10 Atherosclerotic heart disease of native coronary artery without angina pectoris; E78.5 Hyperlipidemia, unspecified; G47.30 Sleep apnea, unspecified; Z95.1 Presence of aortocoronary bypass graft; Z95.5 Presence of coronary angioplasty implant and graft; Z79.01 Long term (current) use of anticoagulants; Z79.899 Other long term (current) drug therapy; Z88.8 Allergy status to other drugs, medicaments and biological substances; Z88.5 Allergy status to narcotic agent; Z82.49 Family history of ischemic heart disease and other diseases of the circulatory system
CPT/HCPCS: 36415; 80048; 85025; 85610; 92960; 93005; J2250; J3010; J7030; A4620

== ENCOUNTER 2023-11-10 17:14 | Emergency (ER) | payer MEDICARE, OTHER ==
[~2023-11-10] VITALS: Ht 167.6 cm; Wt 73.2 kg
[~2023-11-10 17:14] MED LIST changes: -AMI200T PO; +ASPI-1071 PO; +CLOP-32 PO; -CLOP75TA15 PO; +COR3.125T PO; +DAPA10TA PO; -HYDR-4069 PO; +LOSA25TA41 PO; -MAGN100T5 PEG; -METO-539 PO; +NITR0.4T48 SL; +POTA-192 PO; -SPIR25TA5 PO; -VITA100D6 PO; -WARF-55 PO
[2023-11-10 18:32] LABS: EOSINOPHILS # (AUTO) 0.1 X10'3 (0-0.9); HEMOGLOBIN 12.6 g/dl (12.0-16.0); LYMPHOCYTES # (AUTO) 0.9 X10'3 (1.1-4.8); MEAN CORPUSCULAR VOLUME 93.5 FL (78-98); MEAN PLATELET VOLUME 10.5 FL (7.4-10.4)
[2023-11-10 18:34] LABS: BASOPHILS % (AUTO) 0.5 % (0-1); EOSINOPHILS % (AUTO) 1.6 % (0-6); HEMATOCRIT 38.2 % (35.0-45.0); LYMPHOCYTES % (AUTO) 16.9 % (21-51); MEAN CORPUSCULAR HGB CONC 33.1 g/dL (33.0-36.5); MONOCYTES # (AUTO) 0.7 X10'3 (0-0.9); MONOCYTES % (AUTO) 12.7 % (2-12); NEUTROPHILS # (AUTO) 3.6 X10'3 (1.8-7.7); NEUTROPHILS % (AUTO) 68.3 % (42-75); PLATELET COUNT 125 X10'3 (140-440); RED BLOOD COUNT 4.08 X10'6 (4.20-5.60); RED CELL DISTRIBUTION WIDTH 13.9 % (11.5-14.5); WHITE BLOOD COUNT 5.2 X10'3 (4.5-11.0)
[2023-11-10 18:51] LABS: ALANINE AMINOTRANSFERASE 20 U/L (12-78); ALBUMIN 3.9 G/DL (3.4-5.0); ALBUMIN/GLOBULIN RATIO 1.1 (1.1-1.5); ALKALINE PHOSPHATASE 122 IU/L (46-116); ANION GAP 9 (8-16); ASPARTATE AMINO TRANSFERASE 17 U/L (10-37); BILIRUBIN,TOTAL 1.8 MG/DL (0.1-1.0); BLOOD UREA NITROGEN 20 MG/DL (7-18); BUN/CREATININE RATIO 16.9 (10.0-20.0); CALCIUM 9.3 MG/DL (8.5-10.1); CHLORIDE 103 MMOL/L (99-107); CREATININE 1.18 MG/DL (0.40-0.90); GLUCOSE 103 MG/DL (70-104); POTASSIUM 4.3 MMOL/L (3.5-5.1); SODIUM 137 MMOL/L (135-145); TOTAL CARBON DIOXIDE 25.4 MMOL/L (24-32); TOTAL PROTEIN 7.3 G/DL (6.4-8.2); eCRCL 37 ML/MIN; eGFR 44 ML/MIN
[2023-11-10 18:58] LABS: PRO BRAIN NATRIURETIC PEPTIDE 11375 PG/ML (0-450)
[2023-11-10 19:44] LABS: GIANT PLATELET FEW; LARGE PLATELETS FEW; PLATELET ESTIMATE DECREASED
[2023-11-10 20:53] VITALS: BP 151/82; PULSE 83; RESP 18; TEMP 97.8; O2SAT 96
== END 2023-11-10 20:55 | disposition home or self-care (01) ==
LOC: ER 17:14
DX: R07.89 Other chest pain (principal); I10 Essential (primary) hypertension; Z88.6 Allergy status to analgesic agent; Z88.5 Allergy status to narcotic agent; Z79.82 Long term (current) use of aspirin; Z79.899 Other long term (current) drug therapy
CPT/HCPCS: 36415; 71045; 80053; 83880; 84484; 85008; 85025; 93005; 99285

== ENCOUNTER 2024-04-18 07:00 | Day surgery (SDC) | payer MEDICARE, OTHER ==
[2024-04-16 13:24] LABS: EOSINOPHILS # (AUTO) 0.1 X10'3 (0-0.9); HEMOGLOBIN 13.4 g/dl (12.0-16.0); MEAN CORPUSCULAR VOLUME 93.5 FL (78-98); MONOCYTES # (AUTO) 0.7 X10'3 (0-0.9); MONOCYTES % (AUTO) 12.5 % (2-12); WHITE BLOOD COUNT 5.3 X10'3 (4.5-11.0)
[2024-04-16 13:26] LABS: BASOPHILS % (AUTO) 0.9 % (0-1); EOSINOPHILS % (AUTO) 2.5 % (0-6); LYMPHOCYTES # (AUTO) 1.1 X10'3 (1.1-4.8); MEAN CORPUSCULAR HEMOGLOBIN 30.7 PG (27.0-31.0); MEAN CORPUSCULAR HGB CONC 32.8 g/dL (33.0-36.5); MEAN PLATELET VOLUME 9.9 FL (7.4-10.4); NEUTROPHILS # (AUTO) 3.3 X10'3 (1.8-7.7); NEUTROPHILS % (AUTO) 63.1 % (42-75); PLATELET COUNT 137 X10'3 (140-440); RED BLOOD COUNT 4.38 X10'6 (4.20-5.60); RED CELL DISTRIBUTION WIDTH 15.2 % (11.5-14.5)
[2024-04-16 13:33] LABS: ALBUMIN 4.2 G/DL (3.4-5.0); ANION GAP 6 (8-16); BLOOD UREA NITROGEN 20 MG/DL (7-18); BUN/CREATININE RATIO 12.1 (10.0-20.0); CALCIUM 9.1 MG/DL (8.5-10.1); CHLORIDE 105 MMOL/L (99-107); CREATININE 1.65 MG/DL (0.40-0.90); GLUCOSE 96 MG/DL (70-104); POTASSIUM 4.4 MMOL/L (3.5-5.1); SODIUM 143 MMOL/L (135-145); TOTAL CARBON DIOXIDE 31.9 MMOL/L (24-32); eGFR 30 ML/MIN
[2024-04-16 13:34] LABS: INR 1.1 INR; PROTHROMBIN TIME 11.7 SECONDS (9.0-12.0)
[2024-04-16 13:47] LABS: GIANT PLATELET FEW; LARGE PLATELETS FEW; PLATELET ESTIMATE NORMAL
[~2024-04-18] VITALS: Ht 167.6 cm; Wt 74.0 kg
[2024-04-18] VITALS (13 sets, daily range): BP systolic 96–137; BP diastolic 30–99; PULSE 39–66; RESP 14–17; TEMP 98; O2SAT 16–98
[~2024-04-18 07:00] MED LIST changes: +CARV3.1232 PO; -COR3.125T PO
[2024-04-18] MEDS ORDERED: diphenhydrAMINE 25mg capsule PO ONE (07:15)
[2024-04-18] MEDS ORDERED: normal saline 1000ml 1,000 ML IV SCH (07:15)
[2024-04-18] MEDS ORDERED: LORazepam 0.5 MG tablet PO ONE (07:15)
[2024-04-18] MEDS ORDERED: POTA-192 PO (07:32)
[2024-04-18] MEDS ORDERED: FURO-149 PO (07:32)
[2024-04-18] MEDS ORDERED: CARV3.12 PO (07:32)
[2024-04-18] MEDS ORDERED: ASPI81TA52 PO (07:32)
[2024-04-18] MEDS ORDERED: AMI200T PO (07:33)
[2024-04-18] MEDS: atropine 0.1mg/ml 10ml syringe IV ONE (13:23)
[2024-04-18] MEDS: MIDAZolam 1mg/ml 10ml vial IV ONE (13:23)
[2024-04-18] MEDS: amiodarone 150mg/dext, iso-os 100 ML IV ONE (13:23)
[2024-04-18] MEDS: fentaNYL/PF 50MCG/1 ML 2ML syringe IV ONE (13:24)
== END 2024-04-18 15:00 | disposition home or self-care (01) ==
LOC: SSTAY O 07:00
PROVIDERS: ATTEND Internal Medicine Cardiovascular Disease
DX: I48.0 Paroxysmal atrial fibrillation (principal); I25.10 Atherosclerotic heart disease of native coronary artery without angina pectoris; I42.9 Cardiomyopathy, unspecified; G47.30 Sleep apnea, unspecified; E78.5 Hyperlipidemia, unspecified; I49.5 Sick sinus syndrome; I11.0 Hypertensive heart disease with heart failure; I50.9 Heart failure, unspecified; Z95.5 Presence of coronary angioplasty implant and graft; Z79.01 Long term (current) use of anticoagulants; I49.3 Ventricular premature depolarization; Z82.49 Family history of ischemic heart disease and other diseases of the circulatory system; Z98.890 Other specified postprocedural states; Z79.899 Other long term (current) drug therapy
CPT/HCPCS: 36415; 80048; 85025; 85610; 92960; 93005; J0282; J0461; J2250; J3010; J7030; 85008

== ENCOUNTER 2024-04-21 15:23 | Emergency (ER) | payer MEDICARE, OTHER ==
[~2024-04-21] VITALS: Ht 167.6 cm; Wt 78.2 kg
[~2024-04-21 15:23] MED LIST changes: +AMI200T PO; -ASPI-1071 PO; +ASPI81TA52 PO; +CARV3.12 PO; -CARV3.1232 PO; -CHOL10002 PO; -DAPA10TA PO; +FURO-149 PO; -FURO40TA4 PO; -LOSA25TA41 PO
[2024-04-21 15:31] VITALS: TEMP 98
[2024-04-21 16:21] LABS: EOSINOPHILS # (AUTO) 0.1 X10'3 (0-0.9); HEMOGLOBIN 12.1 g/dl (12.0-16.0); MONOCYTES # (AUTO) 0.5 X10'3 (0-0.9); NEUTROPHILS # (AUTO) 3.3 X10'3 (1.8-7.7)
[2024-04-21 16:23] LABS: BASOPHILS % (AUTO) 0.7 % (0-1); EOSINOPHILS % (AUTO) 1.6 % (0-6); HEMATOCRIT 36.6 % (35.0-45.0); LYMPHOCYTES # (AUTO) 0.5 X10'3 (1.1-4.8); LYMPHOCYTES % (AUTO) 12.2 % (21-51); MEAN CORPUSCULAR HEMOGLOBIN 30.7 PG (27.0-31.0); MEAN PLATELET VOLUME 10.1 FL (7.4-10.4); MONOCYTES % (AUTO) 11.5 % (2-12); PLATELET COUNT 108 X10'3 (140-440); RED BLOOD COUNT 3.94 X10'6 (4.20-5.60); RED CELL DISTRIBUTION WIDTH 15.5 % (11.5-14.5); WHITE BLOOD COUNT 4.5 X10'3 (4.5-11.0)
[2024-04-21 16:36] LABS: ANISOCYTOSIS FEW; LARGE PLATELETS FEW; PLATELET ESTIMATE DECREASED
[2024-04-21 16:38] LABS: ALANINE AMINOTRANSFERASE 9 U/L (12-78); ALBUMIN 3.8 G/DL (3.4-5.0); ALBUMIN/GLOBULIN RATIO 1.2 (1.1-1.5); ALKALINE PHOSPHATASE 128 IU/L (46-116); ANION GAP 9 (8-16); ASPARTATE AMINO TRANSFERASE 11 U/L (10-37); BILIRUBIN,TOTAL 1.6 MG/DL (0.1-1.0); BLOOD UREA NITROGEN 38 MG/DL (7-18); BUN/CREATININE RATIO 21.7 (10.0-20.0); CALCIUM 8.5 MG/DL (8.5-10.1); CHLORIDE 109 MMOL/L (99-107); CREATININE 1.75 MG/DL (0.40-0.90); GLUCOSE 122 MG/DL (70-104); POTASSIUM 3.7 MMOL/L (3.5-5.1); PRO BRAIN NATRIURETIC PEPTIDE 5279 PG/ML (0-450); SODIUM 146 MMOL/L (135-145); TOTAL CARBON DIOXIDE 28.1 MMOL/L (24-32); eCRCL 24 ML/MIN; eGFR 28 ML/MIN
[2024-04-21 17:07] LABS: BILIRUBIN,URINE NEGATIVE (Neg); CLARITY,URINE CLEAR (Clear); COLOR,URINE STRAW (Yellow); GLUCOSE, URINE NEGATIVE (Neg); KETONES,URINE NEGATIVE (Neg); LEUKOCYTE ESTERASE ,URINE NEGATIVE (Neg); NITRITES, URINE NEGATIVE (Neg); OCCULT BLOOD,URINE NEGATIVE (Neg); PROTEIN,URINE NEGATIVE (Neg); UROBILINOGEN,URINE 0.2 E.U/dL (0.2-1.0)
[2024-04-21 17:09] LABS: UA COLLECTION TYPE CLN CATCH MIDSTREAM
[2024-04-21 18:30] VITALS: BP 126/54; PULSE 44; RESP 19; O2SAT 96
== END 2024-04-21 18:33 | disposition home or self-care (01) ==
LOC: ER 15:24
DX: R00.1 Bradycardia, unspecified (principal); R55 Syncope and collapse; I25.10 Atherosclerotic heart disease of native coronary artery without angina pectoris; I10 Essential (primary) hypertension; G47.30 Sleep apnea, unspecified; Z88.5 Allergy status to narcotic agent; Z88.8 Allergy status to other drugs, medicaments and biological substances; Z95.1 Presence of aortocoronary bypass graft; Z98.890 Other specified postprocedural states; Z79.82 Long term (current) use of aspirin
CPT/HCPCS: 36415; 71045; 80053; 81003; 83880; 84484; 85008; 85025; 93005; 99285

== ENCOUNTER 2024-04-30 06:13 | Day surgery (SDC) | payer MEDICARE, OTHER ==
[2024-04-27 13:54] LABS: EOSINOPHILS # (AUTO) 0.1 X10'3 (0-0.9); LYMPHOCYTES # (AUTO) 0.9 X10'3 (1.1-4.8); MEAN CORPUSCULAR HGB CONC 33.2 g/dL (33.0-36.5); WHITE BLOOD COUNT 4.8 X10'3 (4.5-11.0)
[2024-04-27 13:56] LABS: BASOPHILS % (AUTO) 0.9 % (0-1); EOSINOPHILS % (AUTO) 2.4 % (0-6); HEMATOCRIT 39.7 % (35.0-45.0); HEMOGLOBIN 13.2 g/dl (12.0-16.0); LYMPHOCYTES % (AUTO) 18.3 % (21-51); MEAN CORPUSCULAR HEMOGLOBIN 30.7 PG (27.0-31.0); MEAN CORPUSCULAR VOLUME 92.6 FL (78-98); MEAN PLATELET VOLUME 10.3 FL (7.4-10.4); MONOCYTES # (AUTO) 0.5 X10'3 (0-0.9); MONOCYTES % (AUTO) 11.4 % (2-12); NEUTROPHILS # (AUTO) 3.2 X10'3 (1.8-7.7); PLATELET COUNT 141 X10'3 (140-440); RED BLOOD COUNT 4.29 X10'6 (4.20-5.60); RED CELL DISTRIBUTION WIDTH 15.1 % (11.5-14.5)
[2024-04-27 14:04] LABS: ALBUMIN 4.2 G/DL (3.4-5.0); ANION GAP 5 (8-16); BLOOD UREA NITROGEN 24 MG/DL (7-18); BUN/CREATININE RATIO 15.8 (10.0-20.0); CALCIUM 9.5 MG/DL (8.5-10.1); CHLORIDE 103 MMOL/L (99-107); CREATININE 1.52 MG/DL (0.40-0.90); GLUCOSE 86 MG/DL (70-104); POTASSIUM 4.3 MMOL/L (3.5-5.1); SODIUM 139 MMOL/L (135-145); TOTAL CARBON DIOXIDE 30.9 MMOL/L (24-32); eGFR 33 ML/MIN
[2024-04-27 14:08] LABS: APTT 28 SECONDS (22-32); INR 1.1 INR; PROTHROMBIN TIME 11.7 SECONDS (9.0-12.0)
[2024-04-30] VITALS (12 sets, daily range): BP systolic 107–152; BP diastolic 43–66; PULSE 54–61; RESP 12–15; TEMP 98.1; O2SAT 95–98
[~2024-04-30] VITALS: Ht 167.6 cm; Wt 72.2 kg
[2024-04-30] MEDS ORDERED: ceFAZolin 2gm in dextrose, iso 50 ML IV ONE (06:30)
[2024-04-30] MEDS ORDERED: [UNRECOGNIZED DRUG - CODE] PO (06:37)
[2024-04-30] MEDS ORDERED: LIDOcaine 1% W/epiNEPHrine 1:100,000 20ml vial ONE (07:35)
[2024-04-30] MEDS ORDERED: ceFAZolin 1000mg inj ONE (07:35)
[2024-04-30] MEDS ORDERED: fentaNYL/PF 50MCG/1 ML 2ML syringe ONE (07:35)
[2024-04-30] MEDS ORDERED: midazolam 1 mg/ML 2ml injection ONE (07:35)
[2024-04-30] MEDS ORDERED: diphenhydrAMINE 50 mg/ml inj ONE (08:40)
[2024-04-30] MEDS ORDERED: HYDROmorphone 1 mg/ml syringe ONE (08:45)
[2024-04-30] MEDS ORDERED: HYDROcodone/acetaminophen 10/325mg tab PO PRN (10:15)
[2024-04-30] MEDS ORDERED: HYDROcodone/acetaminophen 5mg/325mg tablet PO PRN (10:15)
[2024-04-30] MEDS ORDERED: normal saline 500ml IV soln 500 ML IV SCH (10:35)
[2024-04-30] MEDS: vancomycin/NS 1 GM ADD-VANTAGE 250 ML IV ONE (11:22)
[2024-04-30] MEDS ORDERED: CEPH-585 PO (13:16)
[2024-04-30] MEDS ORDERED: CARV-49 PO (13:16)
== END 2024-04-30 15:45 | disposition home or self-care (01) ==
LOC: SSTAY O 06:13
PROVIDERS: ATTEND Internal Medicine Cardiovascular Disease
DX: I49.5 Sick sinus syndrome (principal); I44.7 Left bundle-branch block, unspecified; I13.0 Hypertensive heart and chronic kidney disease with heart failure and stage 1 through stage 4 chronic kidney disease, or unspecified chronic kidney disease; N18.9 Chronic kidney disease, unspecified; I50.22 Chronic systolic (congestive) heart failure; I25.10 Atherosclerotic heart disease of native coronary artery without angina pectoris; I48.0 Paroxysmal atrial fibrillation; E78.5 Hyperlipidemia, unspecified; G47.33 Obstructive sleep apnea (adult) (pediatric); I42.0 Dilated cardiomyopathy; Z79.82 Long term (current) use of aspirin; Z79.02 Long term (current) use of antithrombotics/antiplatelets; Z79.899 Other long term (current) drug therapy; Z95.1 Presence of aortocoronary bypass graft; Z95.5 Presence of coronary angioplasty implant and graft; Z96.652 Presence of left artificial knee joint; Z98.890 Other specified postprocedural states; Z82.49 Family history of ischemic heart disease and other diseases of the circulatory system
CPT/HCPCS: 33208; 71046; 80048; 85025; 85610; 85730; 93005; 99152; 99153; A4565; A6402; C1785; J0690; J1171; J1200; J2250; J3010; J3370; J3490; J7030; Z7610; A6449; C1898

== ENCOUNTER 2024-06-20 08:20 | Day surgery (SDC) | payer MEDICARE, OTHER ==
[2024-06-19 12:11] LABS: EOSINOPHILS # (AUTO) 0.1 X10'3 (0-0.9); HEMOGLOBIN 13.7 g/dl (12.0-16.0); LYMPHOCYTES # (AUTO) 0.8 X10'3 (1.1-4.8); LYMPHOCYTES % (AUTO) 15.4 % (21-51); MEAN CORPUSCULAR HEMOGLOBIN 31.4 PG (27.0-31.0); MONOCYTES # (AUTO) 0.6 X10'3 (0-0.9); MONOCYTES % (AUTO) 11.6 % (2-12); NEUTROPHILS # (AUTO) 3.6 X10'3 (1.8-7.7); WHITE BLOOD COUNT 5.2 X10'3 (4.5-11.0)
[2024-06-19 12:13] LABS: BASOPHILS # (AUTO) 0.1 X10'3 (0-0.2); BASOPHILS % (AUTO) 1.1 % (0-1); EOSINOPHILS % (AUTO) 2.2 % (0-6); HEMATOCRIT 41.8 % (35.0-45.0); MEAN CORPUSCULAR HGB CONC 32.8 g/dL (33.0-36.5); MEAN CORPUSCULAR VOLUME 95.9 FL (78-98); MEAN PLATELET VOLUME 10.2 FL (7.4-10.4); NEUTROPHILS % (AUTO) 69.7 % (42-75); PLATELET COUNT 139 X10'3 (140-440); RED BLOOD COUNT 4.36 X10'6 (4.20-5.60); RED CELL DISTRIBUTION WIDTH 15.8 % (11.5-14.5)
[2024-06-19 12:22] LABS: ANION GAP 5 (8-16); BLOOD UREA NITROGEN 22 MG/DL (7-18); BUN/CREATININE RATIO 14.4 (10.0-20.0); CALCIUM 9.4 MG/DL (8.5-10.1); CHLORIDE 106 MMOL/L (99-107); CREATININE 1.53 MG/DL (0.40-0.90); GLUCOSE 77 MG/DL (70-104); POTASSIUM 4.6 MMOL/L (3.5-5.1); SODIUM 143 MMOL/L (135-145); TOTAL CARBON DIOXIDE 31.7 MMOL/L (24-32); eGFR 33 ML/MIN
[2024-06-19 12:23] LABS: INR 1.2 INR; PROTHROMBIN TIME 12.3 SECONDS (9.0-12.0)
[2024-06-20] VITALS (13 sets, daily range): BP systolic 96–156; BP diastolic 67–88; PULSE 80–91; RESP 16; TEMP 97.4; O2SAT 96–99
[~2024-06-20] VITALS: Ht 167.6 cm; Wt 76.2 kg
[~2024-06-20 08:20] MED LIST changes: -AMI200T PO; -ASPI81TA52 PO; +CARV-49 PO; -CARV3.12 PO; +[UNRECOGNIZED DRUG - CODE] PO
[2024-06-20] MEDS ORDERED: RIVA20TA PO (08:42)
[2024-06-20] MEDS ORDERED: CARV6.257 PO (08:43)
[2024-06-20] MEDS ORDERED: atropine 0.1mg/ml 10ml syringe IV ONE (09:00)
[2024-06-20] MEDS ORDERED: diphenhydrAMINE 25mg capsule PO ONE (09:00)
[2024-06-20] MEDS ORDERED: LORazepam 0.5 MG tablet PO ONE (09:00)
[2024-06-20] MEDS: MIDAZolam 1mg/ml 10ml vial IV ONE (09:35)
[2024-06-20] MEDS: amiodarone 150mg/dext, iso-os 100 ML IV ONE (09:36)
[2024-06-20] MEDS: fentaNYL/PF 50MCG/1 ML 2ML syringe IV ONE (09:36)
[2024-06-20] MEDS: normal saline 1000ml 1,000 ML IV SCH (09:37)
== END 2024-06-20 11:30 | disposition home or self-care (01) ==
LOC: SSTAY O 08:20
PROVIDERS: ATTEND Internal Medicine Cardiovascular Disease
DX: I48.19 Other persistent atrial fibrillation (principal); I48.0 Paroxysmal atrial fibrillation; I13.0 Hypertensive heart and chronic kidney disease with heart failure and stage 1 through stage 4 chronic kidney disease, or unspecified chronic kidney disease; N18.9 Chronic kidney disease, unspecified; I50.22 Chronic systolic (congestive) heart failure; I25.110 Atherosclerotic heart disease of native coronary artery with unstable angina pectoris; I49.5 Sick sinus syndrome; E78.5 Hyperlipidemia, unspecified; G47.33 Obstructive sleep apnea (adult) (pediatric); Z95.1 Presence of aortocoronary bypass graft; Z95.5 Presence of coronary angioplasty implant and graft; Z95.0 Presence of cardiac pacemaker; Z98.890 Other specified postprocedural states; Z79.899 Other long term (current) drug therapy; Z79.82 Long term (current) use of aspirin; Z82.49 Family history of ischemic heart disease and other diseases of the circulatory system; Z79.01 Long term (current) use of anticoagulants; Z79.02 Long term (current) use of antithrombotics/antiplatelets; Z96.659 Presence of unspecified artificial knee joint
CPT/HCPCS: 80048; 85025; 85610; 92960; 93005; A4620; J0282; J2250; J3010; J7030

== ENCOUNTER 2024-06-26 18:37 | Inpatient (IN) | payer MEDICARE, OTHER ==
[~2024-06-26] VITALS: Ht 167.6 cm; Wt 77.2 kg
[~2024-06-26 18:37] MED LIST changes: -CARV-49 PO; +CARV6.257 PO; +RIVA20TA PO; -[UNRECOGNIZED DRUG - CODE] PO
[2024-06-26 19:27] LABS: BASOPHILS # (AUTO) 0.1 X10'3 (0-0.2); BASOPHILS % (AUTO) 0.9 % (0-1); EOSINOPHILS # (AUTO) 0.1 X10'3 (0-0.9); MEAN CORPUSCULAR HEMOGLOBIN 30.8 PG (27.0-31.0); MEAN CORPUSCULAR HGB CONC 32.2 g/dL (33.0-36.5); MEAN CORPUSCULAR VOLUME 95.7 FL (78-98); NEUTROPHILS # (AUTO) 3.9 X10'3 (1.8-7.7)
[2024-06-26 19:30] LABS: EOSINOPHILS % (AUTO) 1.7 % (0-6); HEMATOCRIT 42.1 % (35.0-45.0); HEMOGLOBIN 13.6 g/dl (12.0-16.0); LYMPHOCYTES # (AUTO) 0.8 X10'3 (1.1-4.8); LYMPHOCYTES % (AUTO) 14.4 % (21-51); MEAN PLATELET VOLUME 10.4 FL (7.4-10.4); MONOCYTES # (AUTO) 0.7 X10'3 (0-0.9); PLATELET COUNT 154 X10'3 (140-440); RED CELL DISTRIBUTION WIDTH 16.1 % (11.5-14.5); WHITE BLOOD COUNT 5.6 X10'3 (4.5-11.0)
[2024-06-26 19:40] LABS: ALANINE AMINOTRANSFERASE 12 U/L (12-78); ALBUMIN 3.8 G/DL (3.4-5.0); ALBUMIN/GLOBULIN RATIO 1.2 (1.1-1.5); ALKALINE PHOSPHATASE 134 IU/L (46-116); ANION GAP 8 (8-16); ASPARTATE AMINO TRANSFERASE 21 U/L (10-37); BILIRUBIN,TOTAL 1.8 MG/DL (0.1-1.0); BLOOD UREA NITROGEN 31 MG/DL (7-18); CHLORIDE 103 MMOL/L (99-107); CREATININE 1.82 MG/DL (0.40-0.90); GLUCOSE 105 MG/DL (70-104); POTASSIUM 4.5 MMOL/L (3.5-5.1); SODIUM 141 MMOL/L (135-145); TOTAL CARBON DIOXIDE 29.7 MMOL/L (24-32); eCRCL 23 ML/MIN; eGFR 27 ML/MIN
[2024-06-26 19:50] LABS: PRO BRAIN NATRIURETIC PEPTIDE 11734 PG/ML (0-450)
[2024-06-26] MEDS: ondansetron/PF 4mg/2ml inj IV ONE (19:58)
[2024-06-26] MEDS: furosemide 10 MG/1 ML 10ml inj IV ONE (21:38)
[2024-06-26] MEDS ORDERED: potassium Cl 40MEQ/1/2NS 520ml 520 ML IV PRN (22:40)
[2024-06-26] MEDS ORDERED: potassium Cl 20 mEq SR tablet PO PRN ×2 (22:40)
[2024-06-26] MEDS ORDERED: ondansetron/PF 4mg/2ml inj IV PRN (22:40)
[2024-06-26] MEDS ORDERED: acetaminophen 325mg tablet PO PRN (22:40)
[2024-06-26] MEDS ORDERED: magnesium sulf-water 4G/100mL 100 ML IV PRN (22:40)
[2024-06-26] MEDS ORDERED: mag hydrox/Alum hydrox/simeth 30ml oral suspension PO PRN (22:40)
[2024-06-26] MEDS ORDERED: magnesium sulf-water 2g/50mL 50 ML IV PRN (22:40)
[2024-06-26] MEDS ORDERED: magnesium hydroxide 30ml (MOM) UD suspension PO PRN (22:40)
[2024-06-26] MEDS ORDERED: magnesium Cl slow-release 64mg tablet PO PRN (22:40)
[2024-06-26 23:17] VITALS: BP 119/77; PULSE 84; RESP 13; TEMP 97.9; O2SAT 96
[2024-06-27 02:00] VITALS: BP 106/68; PULSE 82; RESP 16; TEMP 97.6; O2SAT 96
[2024-06-27 06:00] VITALS: BP 104/69; PULSE 88; RESP 14; TEMP 97.9; O2SAT 97
[2024-06-27 06:46] LABS: BASOPHILS % (AUTO) 1.1 % (0-1); EOSINOPHILS # (AUTO) 0.1 X10'3 (0-0.9); EOSINOPHILS % (AUTO) 2.7 % (0-6); HEMATOCRIT 38.4 % (35.0-45.0); HEMOGLOBIN 12.5 g/dl (12.0-16.0); LYMPHOCYTES # (AUTO) 0.9 X10'3 (1.1-4.8); LYMPHOCYTES % (AUTO) 22.3 % (21-51); MEAN CORPUSCULAR HEMOGLOBIN 30.8 PG (27.0-31.0); MEAN CORPUSCULAR HGB CONC 32.5 g/dL (33.0-36.5); MEAN CORPUSCULAR VOLUME 94.7 FL (78-98); MEAN PLATELET VOLUME 10.2 FL (7.4-10.4); MONOCYTES # (AUTO) 0.6 X10'3 (0-0.9); MONOCYTES % (AUTO) 14.1 % (2-12); NEUTROPHILS # (AUTO) 2.5 X10'3 (1.8-7.7); NEUTROPHILS % (AUTO) 59.8 % (42-75); PLATELET COUNT 131 X10'3 (140-440); RED BLOOD COUNT 4.05 X10'6 (4.20-5.60); RED CELL DISTRIBUTION WIDTH 15.7 % (11.5-14.5); WHITE BLOOD COUNT 4.2 X10'3 (4.5-11.0)
[2024-06-27 07:30] LABS: ALBUMIN 3.4 G/DL (3.4-5.0); ANION GAP 9 (8-16); BILIRUBIN,TOTAL 1.5 MG/DL (0.1-1.0); BLOOD UREA NITROGEN 31 MG/DL (7-18); CALCIUM 8.1 MG/DL (8.5-10.1); CHLORIDE 105 MMOL/L (99-107); CREATININE 1.72 MG/DL (0.40-0.90); GLUCOSE 82 MG/DL (70-104); MAGNESIUM 2.3 MG/DL (1.5-2.4); POTASSIUM 4.4 MMOL/L (3.5-5.1); SODIUM 143 MMOL/L (135-145); TOTAL CARBON DIOXIDE 29.1 MMOL/L (24-32); TOTAL PROTEIN 6.1 G/DL (6.4-8.2); eCRCL 25 ML/MIN; eGFR 29 ML/MIN
[2024-06-27 07:31] LABS: ALANINE AMINOTRANSFERASE 15 U/L (12-78); ALBUMIN/GLOBULIN RATIO 1.3 (1.1-1.5); ALKALINE PHOSPHATASE 111 IU/L (46-116); ASPARTATE AMINO TRANSFERASE 15 U/L (10-37)
[2024-06-27] MEDS ORDERED: EMPAGLIFLOZIN 10 MG TABLET PO SCH (08:00)
[2024-06-27] MEDS: K and/or MAG REPLACEMENT MC SCH (08:00)
[2024-06-27] MEDS ORDERED: heparin, porcine 5000 units/ml vial SQ SCH (08:00)
[2024-06-27] MEDS: docusate sod 100mg capsule PO SCH (08:00)
[2024-06-27] MEDS: pantoprazole 40mg Tablet.DR PO SCH (08:40)
[2024-06-27] MEDS: carvedilol 6.25mg tablet PO SCH (08:43)
[2024-06-27] MEDS: furosemide 40mg/4ml inj IV SCH (08:44)
[2024-06-27] MEDS: clopidogrel 75mg tablet PO SCH (12:04)
[2024-06-27 15:00] VITALS: BP 120/74; PULSE 64; RESP 14; TEMP 97.8; O2SAT 97
[2024-06-27 18:00] VITALS: BP 109/74; PULSE 81; RESP 18; TEMP 97.4; O2SAT 93
[2024-06-27 22:00] VITALS: BP 119/68; PULSE 80; RESP 18; TEMP 97.4; O2SAT 94
[2024-06-27 22:14] LABS: SODIUM,URINE RANDOM 92 MEQ/L; TOTAL PROTEIN,URINE RANDOM < 6.0 MG/DL
[2024-06-27 22:18] LABS: OSMOLALITY UA 357 MOSM/K (50-1400)
[2024-06-28 02:00] VITALS: BP 126/86; PULSE 82; RESP 14; TEMP 97.6; O2SAT 94
[2024-06-28 06:00] VITALS: BP 114/76; PULSE 80; RESP 20; TEMP 97.6; O2SAT 92
[2024-06-28 06:42] LABS: EOSINOPHILS # (AUTO) 0.1 X10'3 (0-0.9); EOSINOPHILS % (AUTO) 2.7 % (0-6); HEMATOCRIT 37.6 % (35.0-45.0); HEMOGLOBIN 12.3 g/dl (12.0-16.0); LYMPHOCYTES # (AUTO) 0.9 X10'3 (1.1-4.8); LYMPHOCYTES % (AUTO) 19.1 % (21-51); MEAN CORPUSCULAR HEMOGLOBIN 30.9 PG (27.0-31.0); MEAN CORPUSCULAR HGB CONC 32.6 g/dL (33.0-36.5); MEAN CORPUSCULAR VOLUME 94.6 FL (78-98); MEAN PLATELET VOLUME 10.1 FL (7.4-10.4); MONOCYTES # (AUTO) 0.6 X10'3 (0-0.9); MONOCYTES % (AUTO) 13.6 % (2-12); NEUTROPHILS # (AUTO) 2.8 X10'3 (1.8-7.7); NEUTROPHILS % (AUTO) 63.6 % (42-75); PLATELET COUNT 123 X10'3 (140-440); RED BLOOD COUNT 3.98 X10'6 (4.20-5.60); RED CELL DISTRIBUTION WIDTH 15.7 % (11.5-14.5); WHITE BLOOD COUNT 4.5 X10'3 (4.5-11.0)
[2024-06-28 07:00] LABS: ALANINE AMINOTRANSFERASE 8 U/L (12-78); ALBUMIN 3.3 G/DL (3.4-5.0); ALBUMIN/GLOBULIN RATIO 1.1 (1.1-1.5); ALKALINE PHOSPHATASE 114 IU/L (46-116); ANION GAP 6 (8-16); ASPARTATE AMINO TRANSFERASE 18 U/L (10-37); BILIRUBIN,TOTAL 1.4 MG/DL (0.1-1.0); BLOOD UREA NITROGEN 30 MG/DL (7-18); BUN/CREATININE RATIO 15.5 (10.0-20.0); CALCIUM 8.7 MG/DL (8.5-10.1); CHLORIDE 103 MMOL/L (99-107); CREATININE 1.93 MG/DL (0.40-0.90); GLUCOSE 93 MG/DL (70-104); POTASSIUM 4.2 MMOL/L (3.5-5.1); SODIUM 141 MMOL/L (135-145); TOTAL CARBON DIOXIDE 31.9 MMOL/L (24-32); TOTAL PROTEIN 6.2 G/DL (6.4-8.2); eCRCL 22 ML/MIN; eGFR 25 ML/MIN
[2024-06-28] MEDS ORDERED: clopidogrel 75mg tablet PO SCH (08:00)
[2024-06-28] MEDS ORDERED: rivaroxaban 20mg tablet PO SCH (08:00)
[2024-06-28] MEDS ORDERED: FURO20TA4 PO ×2 (08:06→19:35)
[2024-06-28] MEDS: potassium chloride 10mEq ER tablet PO SCH (08:29)
[2024-06-28] MEDS: nitroGLYCERIN 0.4mg SUBLingual tab SL SCH (08:31)
== END 2024-06-28 11:17 | disposition home or self-care (01) | DRG 291 ==
LOC: ER 18:37 → PCU 3S 22:41
PROVIDERS: ADMIT Internal Medicine Sleep Medicine; ATTEND Internal Medicine
DX: I13.0 Hypertensive heart and chronic kidney disease with heart failure and stage 1 through stage 4 chronic kidney disease, or unspecified chronic kidney disease (principal); I50.23 Acute on chronic systolic (congestive) heart failure; N17.0 Acute kidney failure with tubular necrosis; N18.9 Chronic kidney disease, unspecified; I25.10 Atherosclerotic heart disease of native coronary artery without angina pectoris; Z20.822 Contact with and (suspected) exposure to COVID-19; I48.0 Paroxysmal atrial fibrillation; Z95.1 Presence of aortocoronary bypass graft; I25.2 Old myocardial infarction; Z88.8 Allergy status to other drugs, medicaments and biological substances; Z88.5 Allergy status to narcotic agent; Z79.01 Long term (current) use of anticoagulants; Z79.899 Other long term (current) drug therapy; Z91.199 Patient's noncompliance with other medical treatment and regimen due to unspecified reason
CPT/HCPCS: 36415; 71045; 80053; 82570; 83735; 83880; 83935; 84156; 84300; 84484; 85025; 87081; 87207; 87502; 87503; 87811; 93005; 93306; 99285; G0378; J1940; J2405

== ENCOUNTER 2024-08-08 08:53 | Day surgery (SDC) | payer MEDICARE, OTHER ==
[2024-08-07 13:27] LABS: EOSINOPHILS # (AUTO) 0.1 X10'3 (0-0.9); HEMOGLOBIN 13.6 g/dl (12.0-16.0); LYMPHOCYTES # (AUTO) 0.7 X10'3 (1.1-4.8); MEAN CORPUSCULAR HEMOGLOBIN 29.5 PG (27.0-31.0); MONOCYTES # (AUTO) 0.6 X10'3 (0-0.9); NEUTROPHILS # (AUTO) 3.6 X10'3 (1.8-7.7); PLATELET COUNT 124 X10'3 (140-440)
[2024-08-07 13:28] LABS: BASOPHILS # (AUTO) 0.1 X10'3 (0-0.2); EOSINOPHILS % (AUTO) 1.6 % (0-6); HEMATOCRIT 42.4 % (35.0-45.0); MEAN CORPUSCULAR VOLUME 92.1 FL (78-98); MONOCYTES % (AUTO) 11.5 % (2-12); NEUTROPHILS % (AUTO) 71.9 % (42-75); RED BLOOD COUNT 4.61 X10'6 (4.20-5.60); RED CELL DISTRIBUTION WIDTH 15.2 % (11.5-14.5)
[2024-08-07 13:45] LABS: ALBUMIN 3.7 G/DL (3.4-5.0); ANION GAP 6 (8-16); APTT 30 SECONDS (22-32); BLOOD UREA NITROGEN 33 MG/DL (7-18); BUN/CREATININE RATIO 15.1 (10.0-20.0); CALCIUM 9.4 MG/DL (8.5-10.1); CHLORIDE 102 MMOL/L (99-107); CREATININE 2.19 MG/DL (0.40-0.90); GLUCOSE 101 MG/DL (70-104); INR 1.4 INR; POTASSIUM 4.1 MMOL/L (3.5-5.1); SODIUM 140 MMOL/L (135-145); TOTAL CARBON DIOXIDE 31.6 MMOL/L (24-32); eGFR 22 ML/MIN
[2024-08-07 13:48] LABS: PROTHROMBIN TIME 13.5 SECONDS (9.0-12.0)
[2024-08-07 13:49] LABS: GIANT PLATELET FEW; LARGE PLATELETS MODERATE; PLATELET ESTIMATE DECREASED
[~2024-08-08] VITALS: Ht 167.6 cm; Wt 77.5 kg
[2024-08-08] VITALS (15 sets, daily range): BP systolic 103–117; BP diastolic 52–76; PULSE 80–84; RESP 13–19; TEMP 98.7; O2SAT 92–99
[~2024-08-08 08:53] MED LIST changes: -FURO-149 PO; +FURO20TA4 PO
[2024-08-08] MEDS ORDERED: AMIO200T72 PO (09:38)
[2024-08-08] MEDS ORDERED: CARV6.253 PO (09:38)
[2024-08-08] MEDS: acetylcysteine 200 MG/ml 4ml vial PO PRN (10:26)
[2024-08-08] MEDS: normal saline 1,000 ML IV SCH (10:26)
[2024-08-08] MEDS: sodium bicarbonate 1meq/ml syr 150 ML in dextrose 5%-water 1,000 ML IV ONE (10:26)
[2024-08-08] MEDS: diphenhydrAMINE 25mg capsule PO PRN (11:17)
[2024-08-08] MEDS: LORazepam 0.5 MG tablet PO PRN (11:17)
[2024-08-08] MEDS ORDERED: midazolam 1 mg/ML 2ml injection ONE (11:34)
[2024-08-08] MEDS ORDERED: LIDOcaine 1% 30ml preserv. free vial ONE (11:34)
[2024-08-08] MEDS ORDERED: fentaNYL/PF 50MCG/1 ML 2ML syringe ONE (11:34)
[2024-08-08] MEDS ORDERED: heparin 1,000unit/ml 10ml vial 10 ML ONE (11:34)
[2024-08-08] MEDS ORDERED: iohexol 350 MG/ML 50ML vial IV ONE (11:34)
[2024-08-08] MEDS ORDERED: iohexol 350MG/ML 100ml bottle IV ONE (11:35)
[2024-08-08] MEDS ORDERED: nitroGLYCERIN 500mcg/5mL D5W 5 ML IV ONE (11:35)
[2024-08-08 13:10] LABS: ISTAT HGB ART 13.6 g/dl (12.0-16.0); ISTAT Hct ART 40 %PCV (35-45); ISTAT O2 SATURATION ARTERIAL 100 % (95-98); ISTAT SOURCE ART
[2024-08-08] MEDS ORDERED: sodium bicarbonate 1meq/ml syr 150 ML in dextrose 5%-water 1,000 ML IV ONE (14:05)
[2024-08-08 14:31] LABS: ISTAT HGB MIX 13.6 g/dl (12.0-16.0); ISTAT Hct MIX 40 %PCV (35-45); ISTAT O2 SATURATION MIX VENOUS 60 % (60-80); ISTAT SOURCE VEN
[2024-08-14] MEDS ORDERED: APIX5TAB3 PO (11:13)
[2024-08-14] MEDS ORDERED: FURO-150 PO (11:13)
[2024-08-14] MEDS ORDERED: CARV-164 PO (11:13)
[2024-08-14] MEDS ORDERED: CIPR-208 PO (11:13)
[2024-08-14] MEDS ORDERED: POTA-207 PO (11:13)
== END 2024-08-08 19:15 | disposition home or self-care (01) ==
LOC: SSTAY O 08:53
PROVIDERS: ATTEND Internal Medicine Cardiovascular Disease
DX: R94.39 Abnormal result of other cardiovascular function study (principal); I25.10 Atherosclerotic heart disease of native coronary artery without angina pectoris; I25.810 Atherosclerosis of coronary artery bypass graft(s) without angina pectoris; I25.82 Chronic total occlusion of coronary artery; I50.22 Chronic systolic (congestive) heart failure; I42.0 Dilated cardiomyopathy; G47.33 Obstructive sleep apnea (adult) (pediatric); I48.0 Paroxysmal atrial fibrillation; E78.5 Hyperlipidemia, unspecified; I10 Essential (primary) hypertension; G47.30 Sleep apnea, unspecified; I49.5 Sick sinus syndrome; Z98.890 Other specified postprocedural states; Z79.899 Other long term (current) drug therapy
CPT/HCPCS: 36415; 80048; 82803; 85014; 85025; 85610; 85730; 93005; 93461; 99152; 99153; A4620; A6258; C1725; C1751; C1760; C1769; J1644; J2003; J2250; J3010; J3490; J7030; J7070; Q0163; Q9967; Z7610; 85008